=== PATIENT | male | born 1980 | race Caucasian/White ===

== ENCOUNTER 2018-06-27 09:00 | Inpatient (IN) ==
[2018-06-27] MEDS ORDERED: Morphine Inj 4 MG, Morphine Inj 2 MG IV.PUSH ONE ×2 (09:39)
--- NOTE | 2018-06-27 09:51 | ED ---
HPI General Chief complaint: Dental/Oral Stated complaint: Oral/Eye Complaint Time Seen by Provider: 06/27/18 09:34 History of Present Illness HPI narrative: Patient is a 37-year-old male presents emergency department for evaluation of left-sided jaw swelling and left mandibular dental pain. Patient states he broke a tooth a few days ago he was told by his dentist that it was infected so it could not be pulled yet. He has been placed on antibiotics has been taking them. He states he had a little swelling last night when he went to bed and then when he woke up this morning he had significant swelling and pain and so presented to the emergency department. No fevers no cough no congestion no chest pain but the patient does state he has some neck pain on the left side. Symptoms moderate, worsened this morning, associated signs and symptoms and context as above. Related Data Home Medications Medication Instructions Recorded Confirmed ibuprofen [Motrin IB] 600 mg PO TID PRN 06/27/18 06/27/18 penicillin V potassium PO Q6HR 06/27/18 Allergies Allergy/AdvReac Type Severity Reaction Status Date / Time meperidine Allergy Unknown unknown Verified 06/27/18 09:38 Review of Systems ROS: all other systems reviewed are negative [facility] Medical History Medical History Kidney calculus (Acute) Social History Social History Substance History: Active Abuse Second Hand Smoke Exposure: Yes Smoking Status: Current every day smoker Tobacco Type: Cigarettes How Often Do You Have a Drink Containing Alcohol: 4 or more times a week Recent Travel in [facility] within the Last 8 Weeks: No Recent Out of Country Travel within the Last 8 Weeks: No Substance Abuse Detail Marijuana: Substance Use Status: Active Route Used Substance Abuse: Inhalation Reason for Use: Calm Down Immunization History Tetanus Immunization: <5 Years Exam Narrative Exam Narrative: GENERAL: Well-developed nontoxic but uncomfortable appearing male. SKIN: Focused skin assessment warm/dry. HEAD: Atraumatic. Normocephalic. EYES: Pupils equal and round. No scleral icterus. No injection or drainage. ENT: No nasal bleeding or discharge. Mucous membranes pink and moist. Patient does have one finger trismus, his airway does appear to be patent, he opens his mouth wide enough to see that there is couple dental abscess on the left mandibular aspect. There is obvious facial swelling as well. No facial erythema. NECK: Trachea midline. No JVD. CARDIOVASCULAR: Regular rate and rhythm. No murmur appreciated. RESPIRATORY: No accessory muscle use. Clear to auscultation. Breath sounds equal bilaterally. GASTROINTESTINAL: Abdomen soft, non-tender, nondistended. Hepatic and splenic margins not palpable. MUSCULOSKELETAL: No obvious deformities. No clubbing. No cyanosis. No edema. NEUROLOGICAL: Awake and alert. No obvious cranial nerve deficits. Motor grossly within normal limits. Normal speech. PSYCHIATRIC: Appropriate mood and affect; insight and judgment normal. Course Initial Documented Vital Signs Temperature 99.5 F 06/27/18 09:12 Pulse Rate 80 06/27/18 09:12 Respiratory Rate 16 06/27/18 09:12 Blood Pressure 169/102 H 06/27/18 09:12 Pulse Oximetry 98 06/27/18 09:12 Last Documented Vital Signs Temperature 99.5 F 06/27/18 09:12 Pulse Rate 84 06/27/18 12:24 Respiratory Rate 21 06/27/18 12:24 Blood Pressure 155/92 H 06/27/18 12:24 Pulse Oximetry 95 06/27/18 12:24 Medical Decision Making MDM Narrative Medical decision making narrative: Patient room to the emergency department, there is no neck tenderness, no lymphedema or lymphadenopathy of the anterior cervical chain. No neck erythema. Ludewig's angina as a possibility though I think it is unlikely. Chest x-ray, CT of the neck and face have been ordered. More likely this is an uncomplicated dental abscess and will need drainage. Will reassess after imaging. Morphine and Zofran have been ordered. Patient still having pain after CAT scan showed no drainable abscess but significant cellulitis is coming right up to the mandible of the jaw. Thank patient at baseline is a failure of outpatient therapy, his white count is 19, 000 and while he is not having any vital signs to suggest sepsis think that he would be well benefited by admission to the hospital for IV clindamycin and consultation with oral maxilla facial surgery. The patient is agreeable, discussed with Dr. Casas. Medical Screen Exam Complete: Yes Emergency Medical Condition: Yes Lab Data Result diagrams: 06/27/18 09:50 06/27/18 09:50 Lab Results 06/27/18 06/27/18 06/27/18 Range/Units 09:50 09:50 09:50 WBC 19.4 H (4.0-11.0) th/mm3 RBC 4.73 (4.50-5.90) mil/mm3 Hgb 15.2 (13.0-17.0) gm/dL Hct 42.7 (39.0-51.0) % MCV 90.4 (80.0-100.0) fL MCH 32.1 (27.0-34.0) pg MCHC 35.5 (32.0-36.0) % RDW 13.8 (11.6-17.2) % Plt Count 264 (150-450) th/mm3 MPV 8.5 (7.0-11.0) fL Neut % (Auto) 86.4 H (16.0-70.0) % Lymph % (Auto) 7.0 L (9.0-44.0) % Wharton % (Auto) 6.2 (0.0-8.0) % Eos % (Auto) 0.2 (0.0-4.0) % Baso % (Auto) 0.2 (0.0-2.0) % Neut # (Auto) 16.8 H (1.8-7.7) th/mm3 Lymph # (Auto) 1.4 (1.0-4.8) th/mm3 Wharton # (Auto) 1.2 H (0.0-0.9) th/mm3 Eos # (Auto) 0.0 (0.0-0.4) th/mm3 Baso # (Auto) 0.0 (0.0-0.2) th/mm3 WBC Differential . Differential Comment Auto diff final Sodium 141 (136-145) meq/L Potassium 3.6 (3.5-5.1) meq/L Chloride 106 (98-107) meq/L Carbon Dioxide 26.6 (21.0-32.0) meq/L Anion Gap 8 (5-15) meq/L BUN 4 L (7-18) mg/dL Creatinine 0.80 (0.60-1.30) mg/dL Estimated GFR Greater than 89 (>89) mL/min Random Glucose 96 (74-106) mg/dL Lactic Acid 1.6 (0.4-2.0) mmol/L Calcium 8.6 (8.5-10.1) mg/dL Magnesium 1.8 (1.5-2.5) mg/dL Total Bilirubin 0.8 (0.2-1.0) mg/dL AST 13 L (15-37) U/L ALT 31 (12-78) U/L Alkaline Phosphatase 116 (45-117) U/L Total Protein 7.3 (6.4-8.2) g/dL Albumin 4.0 (3.4-5.0) g/dL Imaging Data Radiologist's impression: Chest X-Ray 06/27/18 09:37 CONCLUSION: Negative examination. Soft Tissue Neck CT 06/27/18 09:37 CONCLUSION: 1. Minimal soft tissue induration over the soft tissues of the face along the left side of the mandible with single small cortical break of uncertain significance. 2. There is no defined abscess 3. I do not see evidence for significant dental caries. Discharge Plan Discharge Disposition Patient Disposition: ED Admit(ED Internal Use Only) Discharge Condition Condition: Stable Discharge Order Discharge Orders: ED Use Only Admit Order (Routine); Ordered 06/27/18 Ordered By: Senthil Bose Physicians Team ED Provider: Senthil Bose Primary Care Provider: Primary Care Physici,Shell Rxs /Orders / Referrals /Forms Prescriptions: No Action penicillin V potassium 500 mg Tablet PO Q6HR RF: 0 ibuprofen [Motrin IB] 200 mg Tablet 600 mg PO TID PRN (Reason: Pain) RF: 0 Discharge Interventions Interventions: Vital Signs Last Done: 06/27/18 12:24 Status ED Status: Admitted Patient
--- NOTE | 2018-06-27 09:52 | XR ---
EXAM DATE: 06/27/2018 9:49 AM EST AGE/SEX: 37 years / Male INDICATIONS: Fever, short of breath, infected tooth CLINICAL DATA: This is the patient's initial encounter. Patient reports that signs and symptoms have been present for 1 day and indicates a pain score of 0/10. MEDICAL/SURGICAL HISTORY: None. None. COMPARISON: [facility] [place]. . FINDINGS: A single AP view of the chest demonstrates the lungs to be symmetrically aerated without evidence of mass, infiltrate or effusion. The cardiomediastinal contours are unremarkable. Osseous structures a re intact. CONCLUSION: Negative examination. Electronically signed by: Luis Fernando Chacon MD 06/27/2018 9:51 AM EST
[2018-06-27 10:21] LABS: Baso % (Auto) 0.2 % (0.0-2.0); Eos % (Auto) 0.2 % (0.0-4.0); Hematocrit 42.7 % (39.0-51.0); Hemoglobin 15.2 gm/dL (13.0-17.0); Lymph # (Auto) 1.4 th/mm3 (1.0-4.8); Mean Corpuscular HGB Conc 35.5 % (32.0-36.0); Mean Corpuscular Hemoglobin 32.1 pg (27.0-34.0); Mean Corpuscular Volume 90.4 fL (80.0-100.0); Mean Platelet Volume 8.5 fL (7.0-11.0); Mono # (Auto) 1.2 th/mm3 (0.0-0.9); Mono % (Auto) 6.2 % (0.0-8.0); Neut # (Auto) 16.8 th/mm3 (1.8-7.7); Neut % (Auto) 86.4 % (16.0-70.0); Platelet Count 264 th/mm3 (150-450); Red Blood Count 4.73 mil/mm3 (4.50-5.90); Red Cell Distribution Width 13.8 % (11.6-17.2); White Blood Count 19.4 th/mm3 (4.0-11.0)
[2018-06-27 10:29] LABS: Alanine Aminotransferase 31 U/L (12-78); Anion Gap 8 meq/L (5-15); Aspartate Aminotransferase 13 U/L (15-37); Blood Urea Nitrogen 4 mg/dL (7-18); Calcium 8.6 mg/dL (8.5-10.1); Carbon Dioxide 26.6 meq/L (21.0-32.0); Chloride 106 meq/L (98-107); Glomerular Filtration Rate Greater Than 89 mL/min (>89); Glucose,Random 96 mg/dL (74-106); Magnesium 1.8 mg/dL (1.5-2.5); Potassium 3.6 meq/L (3.5-5.1); Sodium 141 meq/L (136-145)
[2018-06-27 10:31] LABS: Alkaline Phosphatase 116 U/L (45-117); Total Protein 7.3 g/dL (6.4-8.2)
--- NOTE | 2018-06-27 10:47 | CT ---
EXAM DATE: 06/27/2018 10:43 AM EST AGE/SEX: 37 years / Male INDICATIONS: Left sided jaw pain for two weeks. CLINICAL DATA: This is the patient's initial encounter. Patient reports that signs and symptoms have been present for 2 weeks and indicates a pain score of 8/10. MEDICAL/SURGICAL HISTORY: Renal calculi. None. RADIATION DOSE: 13.01 CTDI (mGy) COMPARISON: No prior exams available for comparison. TECHNIQUE: Helical acquisition was performed using a multirow detector CT scanner during the adminis tration of 76 ml Omnipaque 350 (iohexol) nonionic water-soluble contrast as a single exam dose. Usi ng automated exposure control and adjustment of the mA and/or kV according to patient size, radiation dose was kept as low as reasonably achievable to obtain optimal diagnostic quality images. DICOM fo rmat image data is available electronically for review and comparison. FINDINGS: Mucoperiosteal thickening is present in the right maxillary sinus. The nasopharynx and oropharynx are unremarkable. There is minimal induration of the soft tissues of the left mandible the single small cortical break just before the angle of the mandible without obvious dentition abnormalities. The lef t submandibular gland and parotid glands appear normal. Very minimal nonspecific adenopathy is presen t in both the right and the left neck. The thyroid is unremarkable. CONCLUSION: 1. Minimal soft tissue induration over the soft tissues of the face along the left side of the dewey ble with single small cortical break of uncertain significance. 2. There is no defined abscess 3. I do not see evidence for significant dental caries. Electronically signed by: Luis Fernando Chacon MD 06/27/2018 10:45 AM EST
[2018-06-27] MEDS ORDERED: HYDROmorphone PF Inj 2 MG/ML Vial IV.PUSH ONE (11:50)
[2018-06-27] MEDS ORDERED: Clindamycin 900 mg/NS Premix 900 MG/50 ML PIGGYBACK IV.SIG ONE (12:00)
--- NOTE | 2018-06-27 13:28 | P.HPIM ---
History of Present Illness Primary Care Physician: No Primary Care Physician Chief Complaint: left face infection History of Present Illness: patient is a 37 y/o male with no significant past medical history who presented to ER with swelling of the left face. he says that about two months ago ' the filling of his teeth came out'. he says that it started to bother him about two weeks ago. he saw a dentist last week and he was told that he had ' tooth infection'. he was prescribed oral penicillin but he says that yesterday he noticed that his left face was getting swollen and painful. he's not sure if he had any fever. he says that he was supposed to see the dentist again this week for follow-up. Review of Systems Review of Systems: all other systems reviewed are negative [facility] Medical History Medical History Kidney calculus (Acute) Social History Social History Substance History: Active Abuse Second Hand Smoke Exposure: Yes Smoking Status: Current every day smoker Tobacco Type: Cigarettes How Often Do You Have a Drink Containing Alcohol: 4 or more times a week Recent Travel in [facility] within the Last 8 Weeks: No Recent Out of Country Travel within the Last 8 Weeks: No Substance Abuse Detail Marijuana: Substance Use Status: Active Route Used Substance Abuse: Inhalation Reason for Use: Calm Down Immunization History Tetanus Immunization: <5 Years Medications and Allergies Allergies Allergy/AdvReac Type Severity Reaction Status Date / Time meperidine Allergy Unknown unknown Verified 06/27/18 09:38 Home Medications Medication Instructions Recorded Confirmed Type ibuprofen [Motrin IB] 600 mg PO TID PRN 06/27/18 06/27/18 History penicillin V potassium PO Q6HR 06/27/18 History Active Medications: Active Medications Hydrocodone Bitart/Acetaminophen (Sedro Woolley 5/325) 1 tab PO Q4H PRN PRN Reason: pain 1-5 Hydrocodone Bitart/Acetaminophen (Sedro Woolley 5/325) 2 tab PO Q4H PRN PRN Reason: PAIN 6-10;IF UNABLE TO TAKE PO Sodium Chloride (Ns Inj) 1,000 mls @ 125 mls/hr IV.CONT .Q8H SULEMA Physical Exam Vital signs: Last Vital Signs Temp 99.5 F 06/27/18 09:12 Pulse 84 06/27/18 12:24 Resp 21 06/27/18 12:24 BP 155/92 H 06/27/18 12:24 Pulse Ox 95 06/27/18 12:24 Intake & Output 06/25/18 06/26/18 06/27/18 06/28/18 06:59 06:59 06:59 06:59 Intake Total 106 / 106 Balance 106 / 106 Weight 83.915 kg Constitutional mild distress Routine HEENT Exam Head: Present facial swelling Comments: left facial swelling and tenderness. Routine Neck Exam Present supple Routine Respiratory Exam Present CTA bilaterally Routine Cardiovascular Exam Present RRR Routine Abdominal Exam Present soft Routine Extremities Exam Comments: no pedal edema. Routine Neurological Exam Present alert and oriented X3 Results Labs CBC & Chem 7: 06/27/18 09:50 06/27/18 09:50 Imaging Impressions Chest X-Ray 06/27/18 09:37 CONCLUSION: Negative examination. Soft Tissue Neck CT 06/27/18 09:37 CONCLUSION: 1. Minimal soft tissue induration over the soft tissues of the face along the left side of the mandible with single small cortical break of uncertain significance. 2. There is no defined abscess 3. I do not see evidence for significant dental caries. Caprini VTE Risk Assessment Caprini VTE Risk Assessment: No/Low Risk (score <= 1) Caprini Risk Assessment Model: Point Value = 1 Point Value = 2 Point Value = 3 Point Value = 5 Age 41-60 Minor surgery BMI > 25 kg/m2 Swollen legs Varicose veins or History of unexplained or recurrent spontaneous Oral contraceptives or hormone replacement Sepsis (< 1 month) Serious lung disease, including pneumonia (< 1 month) Abnormal pulmonary function Acute myocardial infarction Congestive heart failure (< 1 month) History of inflammatory bowel disease Medical patient at bed rest Age 61-74 Arthroscopic surgery Major open surgery (> 45 min) Laparoscopic surgery (> 45 min) Malignancy Confined to bed (> 72 hours) Immobilizing plaster cast Central venous access Age >= 75 History of VTE Family history of VTE Factor V Leiden Prothrombin [id number] Lupus anticoagulant Anticardiolipin antibodies Elevated serum homocysteine Heparin-induced thrombocytopenia Other congenital or acquired thrombophilia Stroke (< 1 month) Elective arthroplasty Hip, pelvis, or leg fracture Acute spinal cord injury (< 1 month) Prophylaxis Regimen: Total Risk Factor Score Risk Level Prophylaxis Regimen 0-1 Low Early ambulation 2 Moderate Order ONE of the following: *Sequential Compression Device (SCD) *Heparin 5000 units SQ BID 3-4 Higher Order ONE of the following medications: *Heparin 5000 units SQ TID *Enoxaparin/Lovenox 40 mg SQ daily (WT < 150 kg, CrCl > 30 mL/min) *Enoxaparin/Lovenox 30 mg SQ daily (WT < 150 kg, CrCl > 10-29 mL/min) *Enoxaparin/Lovenox 30 mg SQ BID (WT < 150 kg, CrCl > 30 mL/min) AND/OR *Sequential Compression Device (SCD) 5 or more Highest Order ONE of the following medications: *Heparin 5000 units SQ TID (Preferred with Epidurals) *Enoxaparin/Lovenox 40 mg SQ daily (WT < 150 kg, CrCl > 30 mL/min) *Enoxaparin/Lovenox 30 mg SQ daily (WT < 150 kg, CrCl > 10-29 mL/min) *Enoxaparin/Lovenox 30 mg SQ BID (WT < 150 kg, CrCl > 30 mL/min) AND *Sequential Compression Device (SCD) Assessment and Plan Plan A/P - left face cellulitis/ possible dental abscess- patient has been on oral penicillin the past few days. keep NPO for now- continue with IV antibiotics- follow the blood cultures. continue with pain control and consult oral surgery. Discussed Condition With: ER physician and the patient. Discharge Planning: home when medically stable.
[2018-06-27] MEDS: Sod Chloride 0.9% Inj 1,000 ML IV.CONT SCH ×2 (13:40→22:24)
[2018-06-27] MEDS: Morphine Inj 4 MG/ML Vial IV.PUSH PRN ×2 (15:11→19:17)
--- NOTE | 2018-06-27 18:53 | ECG ---
Date Performed: 06/27/2018 Time Performed: 10:19:45 PTAGE: 37 years EKG: Sinus rhythm POSSIBLE LEFT ATRIAL ENLARGEMENT BORDERLINE ECG PREVIOUS TRACING : 08/22/2012 00.42 Since the previous tracing, no significant change noted DOCTOR: Freddie Guerra Interpretating Date/Time 06/27/2018 18:52:32
[2018-06-27] MEDS ORDERED: Morphine Inj 4 MG/ML Vial IV.PUSH ONE (21:09)
[2018-06-28] MEDS: Morphine Inj 4 MG/ML Vial IV.PUSH PRN ×4 (02:34→20:29)
[2018-06-28] MEDS: Sod Chloride 0.9% Inj 1,000 ML IV.CONT SCH ×5 (04:33→22:32)
[2018-06-28 07:39] LABS: Baso # (Auto) 0.1 th/mm3 (0.0-0.2); Baso % (Auto) 0.5 % (0.0-2.0); Eos % (Auto) 0.2 % (0.0-4.0); Hemoglobin 14.3 gm/dL (13.0-17.0); Lymph # (Auto) 1.4 th/mm3 (1.0-4.8); Lymph % (Auto) 9.1 % (9.0-44.0); Mean Corpuscular Hemoglobin 32.1 pg (27.0-34.0); Mean Corpuscular Volume 91.7 fL (80.0-100.0); Mean Platelet Volume 8.5 fL (7.0-11.0); Mono % (Auto) 6.8 % (0.0-8.0); Neut # (Auto) 12.7 th/mm3 (1.8-7.7); Neut % (Auto) 83.4 % (16.0-70.0); Platelet Count 244 th/mm3 (150-450); Red Blood Count 4.47 mil/mm3 (4.50-5.90); Red Cell Distribution Width 13.9 % (11.6-17.2); White Blood Count 15.2 th/mm3 (4.0-11.0)
--- NOTE | 2018-06-28 09:52 | P.PN ---
Subjective Interval history: Follow-up for facial cellulitis. Patient reports minimal improvement of left facial swelling and pain overnight. Denies fevers or chills. He does report some temporary relief after receiving pain medications. He is tolerating liquid oral intake. He states it is too painful to chew. He reports some associated throat swelling and pain, but denies any dysphagia. Denies any other medical complaints at this time including no chest pain, shortness of breath, or abdominal complaints. Physical Exam Vital signs: Vital Signs 06/27/18 12:23 06/27/18 12:24 06/27/18 13:40 Temperature Pulse Rate 84 78 Respiratory Rate 21 21 20 Blood Pressure 155/92 H 156/86 H Pulse Oximetry 95 96 06/27/18 14:36 06/27/18 15:32 06/27/18 19:20 Temperature 98.9 F Pulse Rate 83 Respiratory Rate 18 16 16 Blood Pressure 172/92 H Pulse Oximetry 97 06/27/18 19:34 06/27/18 22:30 06/27/18 23:30 Temperature 98.6 F 99.3 F Pulse Rate 91 H 80 Respiratory Rate 16 16 16 Blood Pressure 144/88 H 153/92 H Pulse Oximetry 95 95 06/28/18 02:40 06/28/18 04:00 06/28/18 06:40 Temperature 98.5 F Pulse Rate 77 Respiratory Rate 16 16 16 Blood Pressure 138/84 Pulse Oximetry 98 06/28/18 07:18 Temperature Pulse Rate 72 Respiratory Rate 20 Blood Pressure 151/78 H Pulse Oximetry 96 Intake & Output 06/27/18 06/28/18 06/28/18 18:59 06:59 18:59 Intake Total 106 / 106 2207 / 2208 Balance 106 / 106 2207 / 2208 Weight 83.915 kg Intake: IV 106 / 106 2207 / 2207 NS Inj 1,000 ML @ 125 mls/hr IV 1999 / 1999 .CONT .Q8H SULEMA Rx#:[id number] Cleocin Inj 600 MG In NS Inj 208 / 208 100 ML @ 200 mls/hr IV.SIG Q8H SULEMA Rx#:[id number] Cleocin Inj 900 MG In NS Inj 106 / 106 100 ML @ 100 mls/hr IV.SIG ONCE ONE Rx#:[id number] Oral 0 / 0 Other: # Voids 4 Weight On Admission 83.915 kg Narrative: GENERAL: Well-nourished, well-developed male patient in NAD. SKIN: Warm and dry. Diffuse left facial swelling, worse around the left mandible and maxillary regions, tender to palpation, with associated left submandibular and anterior cervical tender lymphadenopathy. HEENT: Normocephalic. Atraumatic. Pupils equal and round. Mucous membranes pink and moist. NECK: Supple. Trachea midline. CARDIOVASCULAR: Regular rate and rhythm. No murmur appreciated. RESPIRATORY: No accessory muscle use. Clear to auscultation. Breath sounds equal bilaterally. GASTROINTESTINAL: Abdomen soft, non-tender, nondistended. Normoactive bowel sounds x4. MUSCULOSKELETAL: No obvious deformities. Extremities without clubbing, cyanosis , or edema. NEUROLOGICAL: Awake and alert. No obvious cranial nerve deficits. Moving all extremities spontaneously. Normal speech. Results - Labs CBC & Chem 7: 06/28/18 07:25 06/27/18 09:50 Laboratory Results - last 24 hr 06/27/18 06/27/18 06/27/18 09:50 09:50 09:50 WBC 19.4 H RBC 4.73 Hgb 15.2 Hct 42.7 MCV 90.4 MCH 32.1 MCHC 35.5 RDW 13.8 Plt Count 264 MPV 8.5 Neut % (Auto) 86.4 H Lymph % (Auto) 7.0 L Rains % (Auto) 6.2 Eos % (Auto) 0.2 Baso % (Auto) 0.2 Neut # (Auto) 16.8 H Lymph # (Auto) 1.4 Rains # (Auto) 1.2 H Eos # (Auto) 0.0 Baso # (Auto) 0.0 WBC Differential . Differential Comment Auto diff final Sodium 141 Potassium 3.6 Chloride 106 Carbon Dioxide 26.6 Anion Gap 8 BUN 4 L Creatinine 0.80 Estimated GFR Greater than 89 Random Glucose 96 Lactic Acid 1.6 Calcium 8.6 Magnesium 1.8 Total Bilirubin 0.8 AST 13 L ALT 31 Alkaline Phosphatase 116 Total Protein 7.3 Albumin 4.0 06/28/18 07:25 WBC 15.2 H RBC 4.47 L Hgb 14.3 Hct 41.0 MCV 91.7 MCH 32.1 MCHC 35.0 RDW 13.9 Plt Count 244 MPV 8.5 Neut % (Auto) 83.4 H Lymph % (Auto) 9.1 Rains % (Auto) 6.8 Eos % (Auto) 0.2 Baso % (Auto) 0.5 Neut # (Auto) 12.7 H Lymph # (Auto) 1.4 Rains # (Auto) 1.0 H Eos # (Auto) 0.0 Baso # (Auto) 0.1 WBC Differential . Differential Comment Auto diff final Sodium Potassium Chloride Carbon Dioxide Anion Gap BUN Creatinine Estimated GFR Random Glucose Lactic Acid Calcium Magnesium Total Bilirubin AST ALT Alkaline Phosphatase Total Protein Albumin - Imaging Impressions Chest X-Ray 06/27/18 09:37 CONCLUSION: Negative examination. Soft Tissue Neck CT 06/27/18 09:37 CONCLUSION: 1. Minimal soft tissue induration over the soft tissues of the face along the left side of the mandible with single small cortical break of uncertain significance. 2. There is no defined abscess 3. I do not see evidence for significant dental caries. Assessment and Plan - Plan 37-year-old male with no significant past medical history presents with a 2- week history of worsening left facial swelling Left facial cellulitis: Failed outpatient. Patient diagnosed with dental infection as outpatient, has been on penicillin x1 week with no improvement -leukocytosis with WBC 19K, however afebrile and not tachycardic -Facial Soft Tissue CT showed Minimal soft tissue induration over the soft tissues of the face along the left side of the mandible with single small cortical break of uncertain significance; There is no defined abscess; do not see evidence for significant dental caries. -Oromaxillofacial surgery consulted, however consult was declined, stated patient needs to see a dentist as outpatient -Continue antibiotics with IV clindamycin -Pain control with Hycet and IV morphine as needed -Give IV Toradol 15mg q6h scheduled for inflammation -Encouraged to obtain follow up with dentist after discharge, patient verbalized understanding DVT Prophylaxis: teds/SCDs
[2018-06-28] MEDS: Ketorolac Inj 30 MG/ML (IVP) Vial IV.PUSH SCH ×3 (11:48→22:32)
[2018-06-28] MEDS ORDERED: Acetaminophen-HYDROcodone 325/7.5 Liq 15 ML UDC PO PRN (15:34)
[2018-06-28 21:16] VITALS: RESP 16
[2018-06-29] MEDS: Ketorolac Inj 30 MG/ML (IVP) Vial IV.PUSH SCH ×2 (04:18→10:05)
[2018-06-29] MEDS: Sod Chloride 0.9% Inj 1,000 ML IV.CONT SCH (06:18)
[2018-06-29 08:59] VITALS: BP 127/91; PULSE 73; TEMP 98.3; O2SAT 96
--- NOTE | 2018-06-29 09:57 | P.DS ---
Date of admission: 06/27/18 14:01 Primary care physician: No Primary Care Physician Attending physician on discharge: Senthil Hung Torres Anticipated date of discharge: 06/29/18 Brief History from admission: patient is a 37 y/o male with no significant past medical history who presented to ER with swelling of the left face. he says that about two months ago ' the filling of his teeth came out'. he says that it started to bother him about two weeks ago. he saw a dentist last week and he was told that he had ' tooth infection'. he was prescribed oral penicillin but he says that yesterday he noticed that his left face was getting swollen and painful. he's not sure if he had any fever. he says that he was supposed to see the dentist again this week for follow-up. Patient update on day of discharge: Follow-up for facial cellulitis. Patient reports significant improvement today. He states his left facial swelling has improved and less painful. He believes that IV Toradol has been helping with the swelling. He states he has been able to eat without difficulty. Denies any fevers or chills. Denies any other new medical complaints. Discussed importance of following up with dentist , patient verbalized understanding. DS: Diagnosis - Discharge Diagnosis (1) Facial cellulitis Status: Acute (2) Dental infection Status: Acute DS: Medications - Discharge Medications Prescriptions: clindamycin HCl 300 mg PO Q6H 14 Days #56 cap ibuprofen [Motrin IB] 600 mg PO Q6H 7 Days #84 tab DS: Summary Hospital Course: 37-year-old male with no significant past medical history presents with a 2- week history of worsening left facial swelling Left facial cellulitis: Failed outpatient. Patient diagnosed with dental infection as outpatient, has been on penicillin x1 week with no improvement. + Leukocytosis with WBC 19K, however afebrile and not tachycardic. Facial Soft Tissue CT showed Minimal soft tissue induration over the soft tissues of the face along the left side of the mandible with single small cortical break of uncertain significance; There is no defined abscess; do not see evidence for significant dental caries. Oromaxillofacial surgery consulted, however consult was declined, stated patient needs to see a dentist as outpatient. Given antibiotics with IV clindamycin. Pain control with Hycet and IV morphine as needed. Given IV Toradol 15mg q6h scheduled for inflammation. Patient's symptoms significantly improved, stable for discharge. Given prescriptions for ibuprofen and clindamycin. Encouraged to obtain follow up with dentist after discharge, patient verbalized understanding - Time Spent with Patient Total time spent providing and/or coordinating discharge services: Less than 30 minutes - Quality: VTE Deep Vein Thrombosis/Pulmonary Embolism Present on Admission: No Exam Vital signs: Vital Signs 06/28/18 10:31 06/28/18 11:06 06/28/18 16:19 Temperature 98.1 F Pulse Rate 76 63 71 Respiratory Rate 20 18 Blood Pressure 128/85 155/81 H 155/73 H Pulse Oximetry 96 98 06/28/18 20:00 06/28/18 20:20 06/28/18 20:40 Temperature 98.4 F Pulse Rate 68 Respiratory Rate 17 16 16 Blood Pressure 128/85 Pulse Oximetry 96 06/28/18 23:05 06/29/18 00:00 06/29/18 04:00 Temperature 98.0 F 98.7 F Pulse Rate 73 74 Respiratory Rate 16 16 16 Blood Pressure 132/88 132/80 Pulse Oximetry 97 95 06/29/18 08:00 Temperature 98.3 F Pulse Rate 73 Respiratory Rate 16 Blood Pressure 127/91 H Pulse Oximetry 96 Intake & Output 06/28/18 06/29/18 06/29/18 18:59 06:59 18:59 Intake Total 1104 / 1104 2208 / 2208 Balance 1104 / 1104 2208 / 2208 Intake: IV 1104 / 1104 2208 / 2208 NS Inj 1,000 ML @ 125 mls/hr IV 1000 / 1000 1999 / 1999 .CONT .Q8H SULEMA Rx#:[id number] Cleocin Inj 600 MG In NS Inj 104 / 104 208 / 208 100 ML @ 200 mls/hr IV.SIG Q8H SULEMA Rx#:[id number] Other: Date of Last Bowel Movement 06/28/18 06/28/18 Narrative: GENERAL: Well-nourished, well-developed male patient in NAD. SKIN: Warm and dry. Diffuse left facial swelling, worse around the left mandible and maxillary regions, tender to palpation, with associated left submandibular and anterior cervical tender lymphadenopathy-overall swelling significantly improved, less tender, no overlying warmth or erythema. HEENT: Normocephalic. Atraumatic. Pupils equal and round. Mucous membranes pink and moist. NECK: Supple. Trachea midline. Mild submandibular and anterior cervical lymphadenopathy. CARDIOVASCULAR: Regular rate and rhythm. No murmur appreciated. RESPIRATORY: No accessory muscle use. Clear to auscultation. Breath sounds equal bilaterally. GASTROINTESTINAL: Abdomen soft, non-tender, nondistended. Normoactive bowel sounds x4. MUSCULOSKELETAL: No obvious deformities. Extremities without clubbing, cyanosis , or edema. NEUROLOGICAL: Awake and alert. No obvious cranial nerve deficits. Moving all extremities spontaneously. Normal speech. Results Procedures completed during hospitalization: None. Labs on day of discharge: Preliminary micro results at discharge 06/27/18 09:50 Aerobic Blood Culture - Preliminary Blood - Peripheral No growth in 1 day Anaerobic Blood Culture - Preliminary No growth in 1 day 06/27/18 09:55 Aerobic Blood Culture - Preliminary Blood - Peripheral No growth in 1 day Anaerobic Blood Culture - Preliminary No growth in 1 day - Impressions ITS Impressions Chest X-Ray 06/27/18 09:37 CONCLUSION: Negative examination. Soft Tissue Neck CT 06/27/18 09:37 CONCLUSION: 1. Minimal soft tissue induration over the soft tissues of the face along the left side of the mandible with single small cortical break of uncertain significance. 2. There is no defined abscess 3. I do not see evidence for significant dental caries. Discharge Plan - Discharge Disposition Patient Disposition: 01 Discharge Home - Discharge Condition Condition: Stable - Discharge Order Discharge Orders: Discharge Order (Routine); Ordered 06/29/18 Ordered By: Chyna Camara - Discharge Details Anticipated Discharge Date: 06/29/18 - Physicians Team Primary Care Provider: Primary Care Physici,No Attending Provider: Senthil Torres Other Providers: Marcus Valenzuela MD
[2018-06-29 11:17] LABS: Baso % (Auto) 0.3 % (0.0-2.0); Eos # (Auto) 0.1 th/mm3 (0.0-0.4); Eos % (Auto) 0.7 % (0.0-4.0); Hematocrit 41.2 % (39.0-51.0); Hemoglobin 14.2 gm/dL (13.0-17.0); Lymph # (Auto) 1.3 th/mm3 (1.0-4.8); Lymph % (Auto) 10.6 % (9.0-44.0); Mean Corpuscular HGB Conc 34.6 % (32.0-36.0); Mean Corpuscular Hemoglobin 32.1 pg (27.0-34.0); Mean Corpuscular Volume 92.8 fL (80.0-100.0); Mean Platelet Volume 8.9 fL (7.0-11.0); Mono # (Auto) 0.6 th/mm3 (0.0-0.9); Mono % (Auto) 5.4 % (0.0-8.0); Neut # (Auto) 9.9 th/mm3 (1.8-7.7); Platelet Count 250 th/mm3 (150-450); Red Blood Count 4.43 mil/mm3 (4.50-5.90); Red Cell Distribution Width 13.6 % (11.6-17.2); White Blood Count 11.9 th/mm3 (4.0-11.0)
[2018-06-29 11:23] LABS: Anion Gap 6 meq/L (5-15); Blood Urea Nitrogen 6 mg/dL (7-18); Calcium 8.3 mg/dL (8.5-10.1); Carbon Dioxide 26.3 meq/L (21.0-32.0); Chloride 107 meq/L (98-107); Glomerular Filtration Rate Greater Than 89 mL/min (>89); Glucose,Random 93 mg/dL (74-106); Sodium 139 meq/L (136-145)
== END 2018-06-29 11:02 | disposition home or self-care (01) ==
LOC: NEPC 09:00 → NEDA 09:00 → NEPHCDU 14:37
PROVIDERS: ADMIT Internal Medicine; ATTEND Internal Medicine